=== PATIENT | female | born 1990 | race Caucasian/White ===

== ENCOUNTER 2017-01-05 15:23 | Emergency (ER) | payer OTHER | END 2017-01-05 17:00 | disposition home or self-care (01) | LOC: ER 15:23 | DX: S39.011A Strain of muscle, fascia and tendon of abdomen, initial encounter (principal); M25.512 Pain in left shoulder; R05 Cough; R06.02 Shortness of breath; F17.210 Nicotine dependence, cigarettes, uncomplicated; Z79.899 Other long term (current) drug therapy ==

== ENCOUNTER 2017-02-26 14:36 | Emergency (ER) | payer OTHER | END 2017-02-26 15:38 | disposition home or self-care (01) | LOC: ER 14:36 | DX: L55.0 Sunburn of first degree (principal); F17.210 Nicotine dependence, cigarettes, uncomplicated; Z79.899 Other long term (current) drug therapy | CPT/HCPCS: 96372; J1100 ==